=== PATIENT | female | born 1980 | race Caucasian/White ===

== ENCOUNTER 2018-11-05 06:22 | Day surgery (SDC) | payer OTHER ==
[~2018-11-05] VITALS: Ht 154.9 cm; Wt 63.6 kg
[2018-11-05] VITALS (14 sets, daily range): BP systolic 82–99; BP diastolic 40–55; PULSE 64–80; RESP 13–21; Ht 154.9 cm; Wt 63.6 kg
[2018-11-05] MEDS ORDERED: CEFAZOLIN 1 GM INJ ONE (07:00)
--- NOTE | 2018-11-05 07:34 | PREAC ---
Date/Time of Note Date/Time of Note DATE: 11/05/18 TIME: 07:30 Anesthesia Eval and Record Evaluation Time Pre-Procedure Interview DATE: 11/05/18 TIME: 07:30 Age 38 Sex female NPO: 8 hrs Preoperative diagnosis Sterilization Planned procedure Lap BTL Past Medical History Past Medical History: None Surgery & Anesthesia Issues No known issue Meds Anticoagulation: No Beta Timoteo within 24 hr: No Reason Beta Timoteo not given: Pt. not on B-Timoteo Meds reviewed: Yes Allergies Allergies Reviewed: Yes Labs/Studies Labs Reviewed: Reviewed by anesthesiologist test: Negative Studies: ECG Pre-procedure Exam Last vitals BP:115/56, P:78, T:98,9, Spo2:100% Airway: Adequate mouth opening, Adequate thyromental dist Mallampati: Mallampati II Teeth: Normal Lung: Normal Heart: Normal ASA Physical Status ASA physical status: 2 Emergency: None Planned Anesthetic General/MAC: ETT Planned Pain Management Parenteral pain med Pre-operative Attestations Prior to commencing anesthesia and surgery, the patient was re-evaluated, there was verification of: *The patient's identity *The results of appropriate recent lab work and preoperative vital signs *The above evaluation not changing prior to induction *Anesthetic plan, risk benefits, alternative and complications discussed with patient/family; questions answered; patient/family understands, accepts and wishes to proceed. JESSICA GUAMAN MD Nov 05, 2018 07:34
--- NOTE | 2018-11-05 07:42 | PREOPHP ---
DATE OF ADMISSION: 11/05/2018 HISTORY: Ms. Aria Singh is a 38-year-old 2 para 2, desires permanent surgical susan rilization. MEDICAL HISTORY: None. MEDICATIONS: None. PAST SURGICAL HISTORY: 1. X1 . 2. X1 laparoscopic cholecystectomy. OBSTETRICAL HISTORY: X1 and x1 vaginal delivery. GYNECOLOGIC HISTORY: 10, regular 3 to 4 days. Denies any sexually transmitted infections. Sexually active with one partner. SOCIAL HISTORY: Denies any smoking, drugs or alcohol. FAMILY HISTORY: None. REVIEW OF SYSTEMS: All within normal except history of present illness. PHYSICAL EXAMINATION: HEENT: Within normal. LUNGS: CTA bilateral. CARDIOVASCULAR: S1, S2, regular rhythm. ABDOMEN: Soft, nontender, negative distention. EXTREMITIES: No calf tenderness. VAGINAL: Normal external genitalia. Cervix negative. CMT negative lesions. Adnexa negative mass, nontender bilateral. Fundus within normal limits. ASSESSMENT: Multiparity, desires permanent surgical sterilization. PLAN: Consent for laparoscopic bilateral tubal sterilization. Risks, benefits and alternatives expl ained. All questions were answered. Dictated By: BOB VÁZQUEZ/ISABEL Conf#: [id number] DID#: [id number]
[2018-11-05] MEDS ORDERED: MIDAZOLAM 1 MG/ML 2 ML INJ ONE (07:43)
[2018-11-05] MEDS ORDERED: FENTAnyl 50 MCG/ML VIAL ONE (07:44)
[2018-11-05] MEDS ORDERED: KETOROLAC 30 MG INJ ONE (08:48)
--- NOTE | 2018-11-05 08:49 | OPPN ---
Date/Time of Note Date/Time of Note DATE: 11/05/18 TIME: 08:46 Operative Report Planned Procedure Procedure date Nov 05, 2018 Procedure(s) laparoscopic bilateral tubal fulguration Performed by see signature line Customer Services Coordinator: BOB GOMEZ MD 2nd Customer Services Coordinator none Anesthesiologist: JESSICA GUAMAN MD Pre-procedure diagnosis Multiparity, desires permanent surgical sterilization Snaxm2Dh Anesthesia Type: Pcmvk4r general Post-Procedure Post-procedure diagnosis same Findings normal uterus tubes and ovaries. dense adhesion b/t the anterior uterus and rectus muscles Estimated Blood Loss: minimal Specimen(s) none Grafts/Implant(s) none Complication(s) none BOB GOMEZ MD Nov 05, 2018 08:49
--- NOTE | 2018-11-05 08:50 | PD.PPDC ---
RESEARCH AND INSIGHTS EXECUTIVE Discharge Instruction Condition Hgwru3Ps Patient Condition: Mivbl8i Good Diet Huthg1Bx Diet: Qbejs8e Resume Regular Diet Activity/Restrictions Svwup1Af Activity: Wiqwo5g Normal Activity May Shower Urppw3Eh Restrictions: Kddjg8q No Exercising No Lifting No Driving No Sexual Activity Nothing in the Vagina No [place] No Tampons, douche Follow-up Follow-up with Physician: 2, Week/Weeks Return to clinic for Nzfib8Ul MUSEUM OR ZOO DIRECTOR Instructions: Unvqj5s Fever greater than 101 Chills Worsening abdominal pain Excessive Vaginal Bleeding More than 2 pads per hour Unable to tolerate diet Ilkuw6Zq OB Instructions: Gjcim4b Breast Tenderness Depression Blurried Vision Headache Fcngo7Bs Surgical Instructions: Fcmoq0q Incisional Drainage Incisional Redness BOB GOMEZ MD Nov 05, 2018 08:50
[2018-11-05] MEDS ORDERED: PROPOFOL 20 ML ONE (08:55)
[2018-11-05] MEDS ORDERED: LIDOCAINE 2% (SDV) 5 ML INJ ONE (08:55)
[2018-11-05] MEDS ORDERED: ROCURONIUM 50 MG INJ ONE (08:55)
[2018-11-05] MEDS ORDERED: GLYCOPYRROLATE 0.4 MG INJ ONE (08:56)
[2018-11-05] MEDS ORDERED: NEOSTIGMINE 10 MG INJ ONE (08:56)
--- NOTE | 2018-11-05 09:08 | PAC ---
Date/Time of Note Date/Time of Note DATE: 11/05/18 TIME: 09:08 Post-Anesthesia Notes Post-Anesthesia Note Last documented vital signs Vital Signs Date Temp Pulse Resp B/P (MAP) Pulse Ox O2 O2 Flow FiO2 Time Delivery Rate 11/05/18 97.6 18 93/54 (67) 97 Room Air 08:13 Activity: WNL Respiratory function: WNL Cardiovascular function: WNL Mental status: Baseline Pain reasonably controlled: Yes Hydration appropriate: Yes Nausea/Vomiting absent: Yes Comments BP:112/56, P:78, Spo2:100%, T:98,8 JESSICA GUAMAN MD Nov 05, 2018 09:08
[2018-11-05] MEDS ORDERED: HYDROmorphONE 1 MG/5 ML IV SYRINGE IV PRN ×2 (09:30)
[2018-11-05] MEDS ORDERED: DIPHENHYDRAMINE 50 MG INJ IV PRN (09:30)
[2018-11-05] MEDS ORDERED: MEPERIDINE 25 MG INJ IV PRN (09:30)
[2018-11-05] MEDS ORDERED: FENTAnyl 50 MCG/ML VIAL IV PRN (09:30)
[2018-11-05] MEDS ORDERED: ONDANSETRON 4 MG INJ IV PRN (09:30)
[2018-11-05] MEDS ORDERED: METOCLOPRAMIDE 10 MG INJ IV PRN (09:30)
--- NOTE | 2018-11-06 07:55 | OPR ---
DATE OF OPERATION: 11/06/2018 PREOPERATIVE DIAGNOSIS: Multiparity, desires permanent surgical sterilization. POSTOPERATIVE DIAGNOSIS: Multiparity, desires permanent surgical sterilization. OPERATION PERFORMED: Laparoscopic bilateral tubal fulguration. CORE MOUNTER: None. ANESTHESIA: General. COMPLICATIONS: None. ESTIMATED BLOOD LOSS: Minimal. FINDINGS: Normal tubes and ovaries. However, dense adhesions between the anterior uterus to the rec tus abdominis muscles. DESCRIPTION OF PROCEDURE: After explaining the risks, benefits and alternatives, the patient had con sent signed in chart, the patient was taken to the operating room where general anesthesia was obtain ed without difficulty. The patient was then examined under anesthesia and found to have a small ante verted uterus with normal adnexa. She was then prepared and draped in a placed in a dorsal lithotomy position and prepared and draped in a sterile fashion. A heavy weighted speculum was then placed in the patient's vagina and the anterior lip of the cervix was grasped with a single tooth tenaculum. A HUMI uterine manipulator was then advanced into the uterus to provide means to manipulate the uteru s. The speculum was then removed from the vagina. Attention was then turned to the patient's abdome n. A 5 mm skin incision was made in the umbilical fold. The Veress needle was carefully introduced into the peritoneal cavity at 45 degree angle while tenting the abdominal wall. Intraperitoneal plac ement was confirmed by water-filled syringe and a drop in intraabdominal pressure with insufflation o f CO2 gas. The trocar and sleeve were then advanced without difficulty into the abdomen where intra- abdominal placement was confirmed by laparoscope. Pneumoperitoneum was obtained with 4 liters of CO2 gas and a 5 mm trocar and sleeve were then advanced without difficulty into the abdomen where intra- abdominal placement was confirmed by laparoscope. A second skin incision was made approximately 2 cm above the symphysis pubis. The second trocar and sleeve were then advanced under direct visualizati on. A survey of the patient's abdomen and pelvis noted as above. The right fallopian tube was fulgu rated at multiple areas of the ampullary and isthmus areas with good blanching. Similarly, the left fallopian tube was fulgurated. The instruments were then removed from the patient's abdomen and the incision was repaired with 3-0 Vicryl. The HUMI was then removed from the vagina with no bleeding no rin from the cervix. The patient tolerated procedure well. Sponge, lap and needle counts were corre ct. The patient was taken to recovery room in a stable condition. Dictated By: BOB VÁZQUEZ/ISABEL Conf#: [id number] DID#: [id number] CC: BOB GOMEZ MD;*EndCC*
== END 2018-11-12 08:05 | disposition home or self-care (01) ==
LOC: SDS 06:22
PROVIDERS: ATTEND Obstetrics & Gynecology
DX: Z30.2 Encounter for sterilization (principal)
CPT/HCPCS: 58670; 85025; 86850; 86900; 86901; J0690; J1885; J2250; J2710; J3010; Z7512; Z7610